=== PATIENT | male | born 1980 | race Caucasian/White ===

== ENCOUNTER 2019-07-16 22:40 | Emergency (ER) | payer SELFPAY ==
[~2019-07-16] VITALS: Ht 167.6 cm; Wt 63.6 kg
[2019-07-16] MEDS ORDERED: AZITHROMYCIN 250 MG TABLET PO ONE (23:15)
[2019-07-16] MEDS ORDERED: CefTRIAXone SODIUM 1 GM/VIAL IM ONE (23:15)
[2019-07-16 23:49] VITALS: BP 153/89
== END 2019-07-16 23:57 | disposition home or self-care (01) ==
LOC: EMS 22:40
DX: A63.0 Anogenital (venereal) warts (principal)
CPT/HCPCS: 96372; 99283; J0696